=== PATIENT | female | born 1960 | race African-American/Black ===

== ENCOUNTER 2017-07-28 14:46 | Outpatient (CLI) | payer BC | END 2017-07-28 14:47 | disposition home or self-care (01) | LOC: BICMAMMO 14:46 | PROVIDERS: ATTEND Family Medicine | DX: Z12.31 Encounter for screening mammogram for malignant neoplasm of breast (principal) | CPT/HCPCS: 77063; 77067 ==

== ENCOUNTER 2018-06-09 06:54 | Observation (INO) | payer OTHER ==
[2018-06-09] MEDS ORDERED: Aspirin Chewable 81 MG TAB ONE ×2 (07:07)
[2018-06-09] MEDS ORDERED: Nitroglycerin 2% Ointment 1 INCH/1 GM Packet ONE (07:20)
[2018-06-09 07:48] LABS: #Basophils 0.1 thou/uL (0.0-0.2); #Eosinphils 0.2 thou/uL (0.0-0.7); #Lymphocytes 1.9 thou/uL (1.20-3.40); #Monocytes 0.3 thou/uL (0.11-0.59); #Neutrophils 2.4 thou/uL (1.40-6.50); %Basophils 1.9 % (0.0-1.0); %Eosinophils 3.8 % (0.0-10.0); %Lymphocytes 39.5 % (21.0-51.0); %Monocytes 6.8 % (0.0-10.0); Hemoglobin 13.8 g/dL (12.0-16.0); Mean Corpuscular HGB CONC 32.9 g/dL (32.0-36.0); Mean Corpuscular Hemoglobin 27.3 pg (27.0-31.0); Mean Corpuscular Volume 82.9 fL (78.0-98.0); Mean Platelet Volume 8.9 fL (7.4-10.4); Platelet Count 270 thou/uL (130-400); RBC Distribution Width 13.4 % (11.5-14.5); Red Blood Cell (RBC) Count 5.08 mill/uL (4.20-5.40); White Blood Cell (WBC) Count 4.9 thou/uL (4.8-10.8)
--- NOTE | 2018-06-09 07:50 | RAD ---
PORTABLE CHEST: INDICATIONS: Chest pain. FINDINGS: The lung morrison are clear. No infiltrate or vascular congestion. Heart and mediastinum are unremark able. IMPRESSION: No acute findings. POS: C
[2018-06-09 07:56] LABS: ALT (SGPT) 24 U/L (8-55); AST (SGOT) 17 U/L (5-34); Albumin 4.1 g/dL (3.5-5.0); Alkaline Phosphatase 110 U/L (40-150); Anion Gap 16 mmol/L (10-20); BUN (Urea Nitrogen) 12 mg/dL (9.8-20.1); Bilirubin, Total 0.4 mg/dL (0.2-1.2); CK (CPK) 149 U/L (29-168); Calc. Creatinine Clearance 0 mL/min (70-130); Calcium 9.5 mg/dL (7.8-10.44); Carbon Dioxide 23 mmol/L (22-29); Chloride 106 mmol/L (98-107); Estimated GFR-MDRD 90; Globulin 3.1 g/dL (2.4-3.5); Glucose 104 mg/dL (70-105); Lipase 23 U/L (8-78); Potassium 3.6 mmol/L (3.5-5.1); Protein, Total 7.2 g/dL (6.0-8.3); Sodium 141 mmol/L (136-145)
[2018-06-09 10:53] LABS: Troponin I Less than 0.010 ng/mL (< 0.028)
[2018-06-09] MEDS ORDERED: Acetaminophen 325 MG TAB PO PRN ×2 (11:18→21:00)
[2018-06-09] MEDS ORDERED: Ondansetron PF 4 MG/2 ML Vial IVP PRN (11:18)
[2018-06-09] MEDS ORDERED: Ondansetron ODT 4 MG TAB PO PRN (11:18)
[2018-06-09 11:20] VITALS: BMI 38.3
[2018-06-09] MEDS ORDERED: Nitroglycerin 2% Ointment 1 INCH/1 GM Packet TOP SCH (11:30)
[2018-06-09 16:57] LABS: Troponin I Less than 0.010 ng/mL (< 0.028)
[2018-06-09] MEDS ORDERED: cloNIDine 0.1 MG TAB PO PRN (17:33)
[2018-06-09] MEDS ORDERED: hydrALAZINE 20 MG/ML VIAL SLOW IVP PRN (17:33)
--- NOTE | 2018-06-09 17:47 | HP ---
CHIEF COMPLAINT: Chest pain. HISTORY OF PRESENT ILLNESS: Ms. Breanna Aaron is a very pleasant 58-year-old female, who was at nondenominational today, reports she had what she describes as tooth pain in her right jaw, then radiated down to her chest about 6:30 this morning, lasted about 15 minutes, stopped by the time she got to the emergency room. Does have a medical history pertinent for hypertension and high cholesterol. EKG showed a normal sinus rhythm, beats per minute were 77. No ectopics conduction. ST segments and T- waves were normal. Left axis, poor precordial transition. The patient was admitted to the observation unit for further risk stratification. PAST MEDICAL HISTORY: As above. Hypertension and hyperlipidemia PAST SURGICAL HISTORY: She had a lumpectomy left breast, which was benign. PSYCHIATRIC HISTORY: None. SOCIAL HISTORY: Denies alcohol, drug use, or smoking history. ALLERGIES: NONE. CURRENT MEDICATIONS: The patient takes; 1. Valsartan/hydrochlorothiazide 320 mg/25 one tablet daily. 2. Pravastatin 10 mg p.o. once a day. 3. Potassium chloride 20 mEq two tablets once a day at bedtime. REVIEW OF SYSTEMS: CONSTITUTIONAL: The patient denies fever or chills. ENT: Denies any sore throat or rhinorrhea. CARDIOVASCULAR: Reports some chest pain, radiation to the jaw. Denies any palpitations. Denies diaphoresis. Denies edema. RESPIRATORY: Denies cough or shortness of breath. GI: Denies abdominal pain, nausea, vomiting, or any stool changes. : Denies dysuria or hematuria. Denies frequency. MUSCULOSKELETAL: Denies any joint pain, recent fall, or trauma. NEUROLOGIC: Denies any mentation changes. All other systems were reviewed and negative unless mentioned in the HPI. PHYSICAL EXAMINATION: VITAL SIGNS: Blood pressure 159/72, pulse is 66, respirations 18, and pO2 saturations 100% on room air. CONSTITUTIONAL: The patient is nontoxic, appears pain free, is alert and oriented to person, place, and time. HEENT: Head is atraumatic and normocephalic. Eyes, eyelids are normal to inspection. Pupils are equally round and reactive to light. ENT, mucous membranes are moist. Mouth exam is normal. NECK: Normal range of motion. Trachea is midline. RESPIRATORY: Chest, breath sounds are clear. No signs of respiratory distress. CARDIOVASCULAR: Regular heart rate and rhythm. Heart sounds are normal. ABDOMEN: Nontender. Bowel sounds are heard. BACK: Normal range of motion. EXTREMITIES: Upper extremity, normal range of motion. Radial pulse equal bilaterally. Lower extremity, motor strength is normal. Pedal pulses are equal bilaterally. No edema is noted. No calf tenderness. NEURO: The patient is oriented to person, place, and time. There is no focal sensory or motor deficits noted. SKIN: Warm, dry, and normal color. PERTINENT LABORATORY DATA: White blood cell count is 4.9, hemoglobin 13.8, hematocrit 42.1, and platelet count is 270. Sodium is 141, potassium is 3.6, chloride is 106, carbon dioxide is 23, gap is 16, BUN is 12, creatinine is 0.80 , GFR is 90, glucose is 104, and calcium is 9.5. Liver enzymes are unremarkable. Troponin x2 are undetectable. Lipase is 23. ASSESSMENT AND PLAN: 1. Chest pain. We will risk stratify for acute coronary syndrome. We will trend troponins. We will obtain a stress test. 2. Hypertension. We will continue home medications. We will trend vital signs. 3. Hyperlipidemia. We will continue home medication. 4. Deep venous thrombosis and gastrointestinal prophylaxis will be started. 5. Case discussed with Dr. Jurado and agrees to plan. Hospital course will depend on clinical findings. Job ID: [id number] [facility]
--- NOTE | 2018-06-09 19:40 | PDOC.EVN ---
Event Note - Event Note Event Note: Pt discussed w [employer] Ms. Kamilla. chart reviewed in detail Will restart select home meds and add prn antihypertensives.Otherwise plan as per H&P. will follow.
[2018-06-09] MEDS: Famotidine 20 MG TAB PO SCH (20:54)
[2018-06-09] MEDS ORDERED: Pravastatin Sodium 20 MG TAB PO SCH (21:00)
[2018-06-09] MEDS ORDERED: Non-Formulary Item 1 EACH (Losartan/Hydrochlorothiazide [Losartan-Hctz 100-12.5 Mg Tab] 1 PO SCH (21:00)
[2018-06-09] MEDS ORDERED: Losartan 25 MG TAB PO SCH (21:00)
[2018-06-09] MEDS ORDERED: Potassium Chloride 20 MEQ TAB PO SCH (21:00)
[2018-06-09] MEDS ORDERED: Hydrochlorothiazide 25 MG TAB PO SCH (21:00)
[2018-06-10 05:39] LABS: #Basophils 0.1 thou/uL (0.0-0.2); #Eosinphils 0.2 thou/uL (0.0-0.7); #Lymphocytes 2.3 thou/uL (1.20-3.40); #Monocytes 0.4 thou/uL (0.11-0.59); #Neutrophils 2.6 thou/uL (1.40-6.50); %Basophils 1.1 % (0.0-1.0); %Eosinophils 3.1 % (0.0-10.0); %Lymphocytes 41.7 % (21.0-51.0); %Monocytes 6.7 % (0.0-10.0); %Neutrophils 47.4 % (42.0-75.0); Hemoglobin 13.2 g/dL (12.0-16.0); Mean Corpuscular Volume 87.3 fL (78.0-98.0); Mean Platelet Volume 8.8 fL (7.4-10.4); Platelet Count 268 thou/uL (130-400); RBC Distribution Width 12.4 % (11.5-14.5); Red Blood Cell (RBC) Count 4.88 mill/uL (4.20-5.40); White Blood Cell (WBC) Count 5.6 thou/uL (4.8-10.8)
[2018-06-10 06:01] LABS: ALT (SGPT) 16 U/L (8-55); AST (SGOT) 14 U/L (5-34); Albumin 3.8 g/dL (3.5-5.0); Alkaline Phosphatase 94 U/L (40-150); Anion Gap 13 mmol/L (10-20); BUN (Urea Nitrogen) 11 mg/dL (9.8-20.1); Bilirubin, Total 0.4 mg/dL (0.2-1.2); Calc. Creatinine Clearance 131 mL/min (70-130); Calcium 9.1 mg/dL (7.8-10.44); Carbon Dioxide 28 mmol/L (22-29); Chloride 103 mmol/L (98-107); Estimated GFR-MDRD 85; Glucose 96 mg/dL (70-105); Potassium 3.6 mmol/L (3.5-5.1); Protein, Total 6.8 g/dL (6.0-8.3); Sodium 140 mmol/L (136-145)
[2018-06-10] MEDS ORDERED: Aspirin 325 MG TAB PO SCH (08:00)
[2018-06-10] MEDS ORDERED: Enoxaparin Sodium 40 MG/0.4 ML SYRINGE SC SCH (09:00)
[2018-06-10 09:30] VITALS: TEMP 97.4
[2018-06-10] MEDS: Famotidine 20 MG TAB PO SCH (10:07)
[2018-06-10] MEDS ORDERED: Amlodipine 10 MG TAB PO SCH (11:30)
--- NOTE | 2018-06-10 16:27 | NM ---
CARDIAC SPECT: CLINICAL HISTORY: 58-year-old female with chest pain, hypertension, and dyslipidemia. TECHNIQUE: A myocardial perfusion scan was performed using the single isotope two day protocol with 30 mCi techn etium-99m sestamibi injected intravenously for both stress and rest images. Exercise stress was monit ored and interpreted by Giacomo Hernandes NP. FINDINGS: Homogeneous tracer distribution is seen in the myocardial segments on stress and rest images without fixed or reversible defects. GATED SPECT LVEF: 60%. WALL MOTION EXAM: Normal. IMPRESSION: Normal myocardial perfusion scan. POS: LASHAY
[2018-06-10 17:03] VITALS: BP 158/77
[2018-06-11] MEDS ORDERED: Amlodipine 10 MG TAB PO SCH (09:00)
--- NOTE | 2018-06-12 08:36 | STRESS ---
Acquisition Time: 2018-06-09 13:57:07 Total Exercise Time: 00:06:00 Test Indications: CHEST PAIN Medications: Protocol: HENRIQUE Max HR: 157 BPM 95% of Pred: 164 BPM Max BP: 186/082 mmHG Max Work Load: 7.0 METS RESTING ECG: NORMAL SINUS RHYTHM AT 65 BPM WITH LEFT AXIS DEVIATION SYMPTOMS: NONE NORMAL BP RESPONSE ECTOPY: NONE ECG STRESS: NO SIGNIFICANT CHANGES INTERPRETATION: NEGATIVE GXT/AWAIT NUCLEAR IMAGES FOR DEFINITIVE DIAGNOSIS Confirmed by GALE FENTON ([id number]) on 06/12/2018 8:36:09 AM Referred By: MD Joesph FOOTE Confirmed By:GALE FENTON
== END 2018-06-10 17:26 | disposition home or self-care (01) ==
LOC: SCSER 06:54 → 2SW 11:12
PROVIDERS: ADMIT Family Medicine; ATTEND Family Medicine
DX: R07.9 Chest pain, unspecified (principal); I10 Essential (primary) hypertension; E78.00 Pure hypercholesterolemia, unspecified; Z79.82 Long term (current) use of aspirin; Z79.899 Other long term (current) drug therapy; Z98.890 Other specified postprocedural states
CPT/HCPCS: 36415; 71045; 78452; 80053; 80061; 82550; 83690; 84443; 84484; 85025; 93005; 93017; 94760; A9500; G0378; J1650

== ENCOUNTER 2018-07-28 15:35 | Outpatient (CLI) | payer OTHER ==
--- NOTE | 2018-07-28 16:06 | MMO ---
Bilateral MAMMO Bilat Screen [facility]. CLINICAL HISTORY: Patient is 58 years old and is seen for screening. The patient has the following family history of breast cancer: mother and maternal aunt. The patient has no personal history of cancer. The patient has a history of left Stereotatic Biopsy in ? - benign. VIEWS: The views performed were: bilateral craniocaudal with tomosynthesis; bilateral mediolateral oblique with tomosynthesis; and right craniocaudal. FILMS COMPARED: The present examination has been compared to prior imaging studies performed at [facility] on 07/28/2017, and at [facility] on 06/15/2013, 07/01/2014, 05/29/2015 and 07/08/2016. MAMMOGRAM FINDINGS: There are scattered fibroglandular densities. Finding 1: There are stable post operative changes seen in the left breast. Finding 2: There is a stable mass with associated biopsy clip seen in the left breast. There are no suspicious masses, suspicious calcifications, or new areas of architectural distortion. IMPRESSION: THERE IS NO MAMMOGRAPHIC EVIDENCE OF MALIGNANCY. A ROUTINE FOLLOW-UP MAMMOGRAM IN 1 YEAR IS RECOMMENDED. THE RESULTS OF THIS EXAM WERE SENT TO THE PATIENT. ACR BI-RADS Category 2 - Benign finding MAMMOGRAPHY NOTE: 1. A negative mammogram report should not delay a biopsy if a dominant of clinically suspicious mass is present. 2. Approximately 10% to 15% of breast cancers are not detected by mammography. 3. Adenosis and dense breasts may obscure an underlying neoplasm.
== END 2018-07-28 15:36 | disposition home or self-care (01) ==
LOC: BICMAMMO 15:35
PROVIDERS: ATTEND Family Medicine
DX: Z12.31 Encounter for screening mammogram for malignant neoplasm of breast (principal); Z80.3 Family history of malignant neoplasm of breast
CPT/HCPCS: 77063; 77067

== ENCOUNTER 2019-08-31 14:38 | Outpatient (CLI) | payer OTHER ==
--- NOTE | 2019-08-31 15:24 | MMO ---
Bilateral MAMMO Bilat Screen [facility]DI[facility]TRAM. CLINICAL HISTORY: Patient is 59 years old and is seen for screening. The patient has the following family history of breast cancer: mother and maternal aunt. The patient has no personal history of cancer. The patient has a history of left Stereotatic Biopsy in ? - benign. VIEWS: The views performed were: bilateral craniocaudal with tomosynthesis; bilateral mediolateral oblique; and bilateral mediolateral oblique with tomosynthesis. FILMS COMPARED: The present examination has been compared to prior imaging studies performed at [facility] on 07/28/2017 and 07/28/2018, and at [facility] on 05/29/2015 and 07/08/2016. This study has been interpreted with the assistance of computer-aided detection. MAMMOGRAM FINDINGS: There are scattered fibroglandular densities. Left biopsy clip. Nodularity is stable. There are no suspicious masses, suspicious calcifications, or new areas of architectural distortion. IMPRESSION: THERE IS NO MAMMOGRAPHIC EVIDENCE OF MALIGNANCY. A ROUTINE FOLLOW-UP MAMMOGRAM IN 1 YEAR IS RECOMMENDED. THE RESULTS OF THIS EXAM WERE SENT TO THE PATIENT. ACR BI-RADS Category 2 - Benign finding MAMMOGRAPHY NOTE: 1. A negative mammogram report should not delay a biopsy if a dominant of clinically suspicious mass is present. 2. Approximately 10% to 15% of breast cancers are not detected by mammography. 3. Adenosis and dense breasts may obscure an underlying neoplasm. Reported by: MARITZA HOANG MD Electonically Signed: [id number]
== END 2019-08-31 14:39 | disposition home or self-care (01) ==
LOC: BICMAMMO 14:38
PROVIDERS: ATTEND Family Medicine
DX: Z12.31 Encounter for screening mammogram for malignant neoplasm of breast (principal); Z80.3 Family history of malignant neoplasm of breast
CPT/HCPCS: 77063; 77067

== ENCOUNTER 2020-09-05 08:47 | Outpatient (CLI) | payer OTHER | END 2020-09-05 08:48 | disposition home or self-care (01) | LOC: BICMAMMO 08:47 | PROVIDERS: ATTEND Family Medicine | DX: Z12.31 Encounter for screening mammogram for malignant neoplasm of breast (principal); Z80.3 Family history of malignant neoplasm of breast | CPT/HCPCS: 77063; 77067 ==

== ENCOUNTER 2021-09-08 15:15 | Outpatient (CLI) | payer BC | END 2021-09-08 15:16 | disposition home or self-care (01) | LOC: BICMAMMO 15:15 | PROVIDERS: ATTEND Family Medicine | DX: Z12.31 Encounter for screening mammogram for malignant neoplasm of breast (principal); Z91.89 Other specified personal risk factors, not elsewhere classified; Z80.3 Family history of malignant neoplasm of breast | CPT/HCPCS: 77063; 77067 ==

== ENCOUNTER 2022-09-09 07:50 | Outpatient (CLI) | payer BC | END 2022-09-09 07:51 | disposition home or self-care (01) | LOC: BICMAMMO 07:50 | PROVIDERS: ATTEND Family Medicine | DX: Z12.31 Encounter for screening mammogram for malignant neoplasm of breast (principal) | CPT/HCPCS: 77063; 77067 ==